=== PATIENT | female | born 1985 | race Two or more races ===

== ENCOUNTER 2021-03-29 05:06 | Inpatient (IN) | payer OTHER ==
[~2021-03-29] VITALS: Ht 167.6 cm; Wt 66.8 kg
[2021-03-29 05:57] LABS: COVID AG,FIA SOURCE NASOPHARYNGEAL
[2021-03-29] MEDS ORDERED: LORazepam 2 MG/ML VIAL IVP ONE ×2 (06:15→11:15)
[2021-03-29] MEDS ORDERED: HALOPERIDOL LACTATE 5 MG/ML VIAL IVP ONE (06:15)
[2021-03-29] MEDS ORDERED: DiphenhydrAMINE HCL 50 MG/ML VIAL IVP ONE (06:15)
[2021-03-29] MEDS ORDERED: 0.9% SODIUM CHLORIDE 10 ML SYRINGE IVP PRN (06:45)
[2021-03-29] MEDS ORDERED: ONDANSETRON HCL 4 MG/2 ML VIAL IVP PRN (06:45)
[2021-03-29] MEDS ORDERED: ACETAMINOPHEN 325 MG TABLET PO PRN ×2 (06:45→12:15)
[2021-03-29 06:56] LABS: BASOPHILS % (AUTO) 0.6 % (0.0-2.0); EOSINOPHILS % (AUTO) 0.2 % (1.0-6.0); HEMATOCRIT 38.2 % (36-46); LYMPHOCYTES % (AUTO) 21.2 % (22.0-44.0); MEAN CORPUSCULAR HEMOGLOBIN 31.5 pg (26.0-34.0); MEAN CORPUSCULAR HGB CONC 34.1 G/dL (31.0-37.0); MEAN CORPUSCULAR VOLUME 92 fL (80-100); MONOCYTES # (AUTO) 0.9 K/uL (0.1-1.0); MONOCYTES % (AUTO) 9.6 % (2.0-9.0); NEUTROPHILS # (AUTO) 6.4 K/uL (1.8-7.7); NEUTROPHILS % (AUTO) 68.4 % (40.0-70.0); PLATELET COUNT (AUTO) 424 K/uL (150-450); RED BLOOD CELL COUNT(AUTO) 4.13 MIL/uL (4.00-5.20); RED CELL DISTRIBUTION WIDTH 13.3 % (11.5-14.5)
[2021-03-29 07:15] LABS: ALANINE AMINOTRANSFERASE 52 U/L (12-78); ALBUMIN 3.9 g/dL (3.4-5.0); ALKALINE PHOSPHATASE 49 U/L (46-116); ANION GAP 9 mmol/L (8-16); ASPARTATE AMINOTRANSFERASE 31 U/L (15-37); BILIRUBIN,TOTAL 0.4 mg/dL (0.1-1.0); CALCIUM, TOTAL 8.9 mg/dL (8.8-10.5); CARBON DIOXIDE 28 mmol/L (22-29); CHLORIDE 100 mmol/L (98-107); GLOMERULAR FILTR. RATE CALC > 60 mL/min (>60); GLUCOSE,RANDOM 101 mg/dL (70-110); HCG,QUANTITATIVE < 1 mIU/mL (0-6); SODIUM SERUM 137 mmol/L (136-145); TOTAL PROTEIN, SERUM 7.4 g/dL (6.4-8.2); UREA NITROGEN, BLOOD 8 mg/dL (7-18)
[2021-03-29 07:20] LABS: POTASSIUM 2.5 mmol/L (3.5-5.1)
[2021-03-29] MEDS: POTASSIUM CHL 10 MEQ/WATER 50 ML IV SCH ×2 (07:39→09:06)
[2021-03-29 08:35] VITALS: BP 124/82
[2021-03-29] MEDS ORDERED: SODIUM CHLORIDE 0.9% 1,000 ML ONE (09:01)
[2021-03-29] MEDS ORDERED: HALOPERIDOL LACTATE 5 MG/ML VIAL IM ONE (11:15)
[2021-03-29] MEDS: DiphenhydrAMINE HCL 50 MG/ML VIAL IVP SCH (11:29)
[2021-03-29] MEDS ORDERED: LORazepam 2 MG/ML VIAL IVP PRN (11:30)
[2021-03-29] MEDS ORDERED: QUEtiapine FUMARATE 100 MG TABLET PO PRN (11:30)
[2021-03-29] MEDS ORDERED: DiphenhydrAMINE HCL 50 MG/ML VIAL IM ONE (12:00)
[2021-03-29] MEDS ORDERED: LORazepam 2 MG/ML VIAL IM ONE (12:00)
[2021-03-29] MEDS ORDERED: MAGNESIUM HYDROXIDE SUSPENSION 30 ML UDCUP PO PRN (12:15)
[2021-03-29] MEDS ORDERED: LOPERAMIDE HCL 2 MG CAPSULE PO PRN (12:15)
[2021-03-29] MEDS ORDERED: PETROLATUM,WHITE 28 GM JELLY TP PRN (12:15)
[2021-03-29] MEDS ORDERED: IBUPROFEN 400 MG TABLET PO PRN (12:15)
[2021-03-29] MEDS ORDERED: ALBUTEROL SULFATE HFA 90 MCG/PUFF 8 GM INHALER IH PRN (12:15)
[2021-03-29] MEDS ORDERED: MAG HYDROX/AL HYDROX/SIMETH ES 30 ML SUSPENSION UDCUP PO PRN (12:15)
[2021-03-29] MEDS ORDERED: CloNIDine HCL 0.1 MG TABLET PO PRN (12:15)
[2021-03-29] MEDS ORDERED: POTASSIUM CHLORIDE 20 MEQ ER TABLET PO PRN (12:15)
[2021-03-29] MEDS ORDERED: NICOTINE 14 MG/24 HOUR PATCH TD PRN (12:15)
[2021-03-29] MEDS ORDERED: GuaiFENesin/D-METHORPHAN [SUGAR-FREE] 200-20MG/10 ML SYRUP UDCUP PO PRN (12:15)
[2021-03-29] MEDS ORDERED: ONDANSETRON HCL 4 MG TABLET PO PRN (12:15)
[2021-03-29] MEDS ORDERED: DOCUSATE SODIUM 100 MG CAPSULE PO PRN (12:15)
[2021-03-29] MEDS: POTASSIUM CHL 10 MEQ/WATER 50 ML IV PRN ×7 (12:24→23:34)
[2021-03-29 19:40] VITALS: BP 124/84
[2021-03-29] MEDS: RisperiDONE 2 MG TABLET PO SCH (19:47)
[2021-03-30] MEDS: POTASSIUM CHL 10 MEQ/WATER 50 ML IV PRN (00:31)
[2021-03-30 01:18] LABS: AMPHET/METH SCREEN,URINE NEGATIVE (NEGATIVE); BARBITURATE SCREEN, URINE NEGATIVE (NEGATIVE); BENZODIAZEPINES SCREEN,URINE NEGATIVE (NEGATIVE); CANNABINOID SCREEN,URINE NEGATIVE (NEGATIVE); COCAINE SCREEN,URINE NEGATIVE (NEGATIVE); METHADONE SCREEN, URINE NEGATIVE (NEGATIVE); OPIATE SCREEN,URINE NEGATIVE (NEGATIVE)
[2021-03-30 01:20] LABS: PHENCYCLIDINE SCREEN,URINE NEGATIVE (NEGATIVE)
[2021-03-30 03:00] VITALS: BP 121/80
[2021-03-30 08:16] VITALS: BP 131/73
[2021-03-30] MEDS: RisperiDONE 2 MG TABLET PO SCH ×2 (09:07→20:07)
[2021-03-30 16:04] VITALS: BP 131/86
[2021-03-30] MEDS: DiphenhydrAMINE HCL 50 MG/ML VIAL IVP SCH (20:07)
[2021-03-31 05:36] VITALS: BP 130/84
[2021-03-31] MEDS: LORazepam 2 MG/ML VIAL IVP PRN ×2 (06:52→16:26)
[2021-03-31 07:49] VITALS: BP 113/71
[2021-03-31] MEDS: RisperiDONE 2 MG TABLET PO SCH ×2 (08:10→19:49)
[2021-03-31 15:33] VITALS: BP 129/73
[2021-03-31 17:45] VITALS: BP 124/59
[2021-03-31] MEDS ORDERED: LORazepam 2 MG/ML VIAL IVP ONE (18:45)
[2021-03-31 19:34] VITALS: BP_SYST 116; BP_SYST 119; BP_DIAS 67; BP_DIAS 73
[2021-03-31 23:49] VITALS: BP 113/79
[2021-03-31 23:49] LABS: PHOSPHORUS 3.6 mg/dL (2.5-4.9)
[2021-03-31 23:53] LABS: POTASSIUM 2.8 mmol/L (3.5-5.1)
[2021-04-01 00:11] LABS: MAGNESIUM 2.1 mg/dL (1.80-2.40)
[2021-04-01] MEDS ORDERED: MAGNESIUM OXIDE 400 MG TABLET PO PRN (00:15)
[2021-04-01] MEDS ORDERED: MAGNESIUM SULFATE 2 GM/WATER 50 ML IV PRN (00:15)
[2021-04-01] MEDS ORDERED: MAGNESIUM SULFATE 4 GM/WATER 100 ML IV PRN (00:15)
[2021-04-01] MEDS ORDERED: SODIUM CHLORIDE 0.9% 500 ML IV ONE (00:20)
[2021-04-01] MEDS ORDERED: SODIUM CHLORIDE 0.9% 250 ML IV ONE (00:20)
[2021-04-01 00:38] LABS: ALBUMIN 3.4 g/dL (3.4-5.0)
[2021-04-01] MEDS: POTASSIUM CHL 10 MEQ/WATER 50 ML IV PRN ×4 (00:43→03:27)
[2021-04-01] MEDS: POTASSIUM CHL 20 MEQ/0.9% NS 1,000 ML IV SCH ×2 (00:43→13:40)
[2021-04-01 04:55] VITALS: BP 113/74
[2021-04-01 08:00] VITALS: BP 115/77
[2021-04-01] MEDS: RisperiDONE 2 MG TABLET PO SCH ×2 (10:02→20:27)
[2021-04-01 15:47] VITALS: BP 105/65
[2021-04-01 19:18] VITALS: BP 121/73
[2021-04-01 23:45] VITALS: BP 112/78
[2021-04-02 05:07] VITALS: BP 107/73
[2021-04-02 06:57] LABS: ANION GAP 7 mmol/L (8-16); CARBON DIOXIDE 26 mmol/L (22-29); CHLORIDE 106 mmol/L (98-107); CREATININE 0.72 mg/dL (0.60-1.30); GLOMERULAR FILTR. RATE CALC > 60 mL/min (>60); GLUCOSE,RANDOM 89 mg/dL (70-110); POTASSIUM 3.5 mmol/L (3.5-5.1); SODIUM SERUM 139 mmol/L (136-145); UREA NITROGEN, BLOOD 6 mg/dL (7-18)
[2021-04-02 07:08] VITALS: BP 118/72
[2021-04-02] MEDS: RisperiDONE 2 MG TABLET PO SCH (08:23)
[2021-04-02 11:17] VITALS: BP 106/66
[2021-04-02] MEDS ORDERED: RISP2TAB45 PO (15:04)
[2021-04-02 15:18] VITALS: BP 128/79
== END 2021-04-02 15:50 | DRG 885 ==
LOC: EDSEX 05:10 → EMS 05:10 → 6N 06:19 → 5S 04-01 00:13
PROVIDERS: ADMIT Psychiatry & Neurology Child & Adolescent Psychiatry; ATTEND Internal Medicine
DX: F25.0 Schizoaffective disorder, bipolar type (principal); F29 Unspecified psychosis not due to a substance or known physiological condition; E87.6 Hypokalemia; R00.0 Tachycardia, unspecified; Z20.822 Contact with and (suspected) exposure to COVID-19; F32.9 Major depressive disorder, single episode, unspecified
CPT/HCPCS: 80048; 80053; 80307; 82040; 83735; 84100; 84132; 84484; 84702; 85025; 93005; 93306; 99291; J1200; J1630; J2060; J3480; J7030; J7040; J7050; Q0162